=== PATIENT | female | born 1955 ===

== ENCOUNTER 2019-12-05 08:24 | Day surgery (SDC) | payer OTHER ==
[~2019-12-05 08:24] MED LIST: LASIX20 MG PO; LIPITOR40 M1 PO; METFORMIN HCL500 M3 PO; NITROSTAT0.4 MG SL; ZESTRIL20 MG PO
[2019-12-05] MEDS ORDERED: ULTRACET PO (11:30)
== END 2019-12-05 14:40 | disposition home or self-care (01) ==
LOC: CIR.AMB 08:24
PROVIDERS: ATTEND Surgery
DX: R15.9 Full incontinence of feces (principal); Z20.828 Contact with and (suspected) exposure to other viral communicable diseases
CPT/HCPCS: 64581; C1778

== ENCOUNTER 2019-12-19 09:05 | Day surgery (SDC) | payer OTHER ==
[~2019-12-19 09:05] MED LIST changes: +ULTRACET PO
[2019-12-19] MEDS ORDERED: PERCOCET 5-3251 EACH PO (11:39)
== END 2019-12-19 14:15 | disposition home or self-care (01) ==
LOC: CIR.AMB 09:05
PROVIDERS: ATTEND Surgery
DX: R15.9 Full incontinence of feces (principal); Z20.828 Contact with and (suspected) exposure to other viral communicable diseases
CPT/HCPCS: 64590; 95971; L8679

== ENCOUNTER 2021-02-04 05:35 | Day surgery (SDC) | payer OTHER ==
[~2021-02-04 05:35] MED LIST changes: +PERCOCET 5-3251 EACH PO; +VASOTEC2.5 MG
[2021-02-04] MEDS ORDERED: ULTRACET PO (09:43)
== END 2021-02-04 15:15 | disposition home or self-care (01) ==
LOC: CIR.AMB 05:35 → AMB-ENDOS 10:27 → CIR.AMB 10:29
PROVIDERS: ATTEND Surgery
DX: R15.9 Full incontinence of feces (principal); Z20.822 Contact with and (suspected) exposure to COVID-19